=== PATIENT | male | born 1995 | race Caucasian/White ===

== ENCOUNTER → 2018-08-28 | Outpatient (CLI) | payer OTHER ==
--- NOTE | 2018-08-28 10:56 | RADIOLOGY REPORT (SQ) ---
EXAM DESCRIPTION: DUPLEX ART/MODESTO FLOW COMPLETE COMPLETED DATE/TIME: 08/28/2018 10:34 am REASON FOR STUDY: SARAH (I70.1) COMPARISON: None. TECHNIQUE: Realtime and static grayscale images acquired. Selected color Doppler, velocities and spe ctral images recorded. LIMITATIONS: None. FINDINGS: RIGHT KIDNEY: RENAL ARTERY VELOCITIES: 83 cm/sec. Segmental artery velocity 59 cm/sec. RENAL VEIN: Color doppler flow present, patent. VELOCITY RATIO: 0.7. Normal waveforms. KIDNEY: Normal size. No significant pathology. LEFT KIDNEY: RENAL ARTERY VELOCITIES: 112 cm/sec. Segmental artery velocity 53 cm/sec. RENAL VEIN: Color doppler flow present, patent. VELOCITY RATIO: 0.9. Normal waveforms. KIDNEY: Normal size. No significant pathology. BLADDER: Normal. OTHER: No other significant finding. IMPRESSION: NO DOPPLER EVIDENCE OF HEMODYNAMICALLY SIGNIFICANT RENAL ARTERY STENOSIS. COMMENT: NORMAL RENAL ARTERY/AORTA VELOCITY RATIO IS LESS THAN OR EQUAL TO 3.5. TECHNICAL DOCUMENTATION: JOB ID: [id number] [employer]- All Rights Reserved Reading location - IP/workstation name: [email or web address]
== END ==
LOC: RAD 09:29
PROVIDERS: ATTEND Internal Medicine
DX: I70.1 Atherosclerosis of renal artery (principal); I10 Essential (primary) hypertension
CPT/HCPCS: 93975